=== PATIENT | male | born 1980 | race Caucasian/White ===

== ENCOUNTER 2020-07-10 14:03 | Emergency (ER) | payer OTHER, SELFPAY ==
[2020-07-10 14:40] VITALS: BP 124/91; PULSE 74; RESP 20; TEMP 37.1; O2SAT 98; BMI 25.4
--- NOTE | 2020-07-10 15:14 | HMH.EDUTC ---
[facility] [place] Disposition Clinical Impression: Inguinal muscle strain Qualifiers: Encounter type: subsequent encounter Qualified Code(s): S39.013D - Strain of muscle, fascia and tendon of pelvis, subsequent encounter Disposition: Home, Self-Care Condition on Discharge: Good Instructions: Muscle Strain, Groin Strain Additional Instructions: Call Dr Wyatt office [facility] Primary Care for appointment FOllow up if no improvement and for further treatment and evaluation Return if needed Straight to ER If any life threatening symptoms Referrals: Samson Myers MD [Primary Care Provider] - As needed Christiano Benavidez MD [Staff Physician] - As needed (Call office for appointment) Time of Disposition: 15:34 Medical Decision Making - Eze Inquiry Pt receiving controlled substance: No Eze was queried for this patient: No Vital Signs: 07/10/20 14:40 07/10/20 15:39 Temperature 98.7 F 98.7 F Temperature Source Oral Pulse Rate 74 Pulse Rate [Right Brachial] 74 Respiratory Rate 20 20 Blood Pressure 124/91 H Blood Pressure [Right Arm] 124/91 H Blood Pressure Mean [Right Arm] 102 Blood Pressure Source [Right Arm] Automatic Cuff Blood Pressure Position [Right Arm] Sitting 02 Sat by Pulse Oximetry 98 Oxygen Delivery Method Room Air Medical Decision Narrative: Spoke to the staff at [facility] Primary care and discussed patient and his circumstances Unsure of why Workers Comp sent him to the [facility] for referral as patient is unsure and they told him that his PCP is not covered under his workers comp They agreed to have patient call the office for appointment and would see him for further treatment and evaluation. [facility] [place] HPI - General Stated complaint: [id number] pain in groin area Time Seen by Provider: 07/10/20 15:14 Mode of Arrival: Ambulatory Source of Information: Patient Limitations: No Limitations Description of Symptoms (Recalled from Triage Doc. by RN): WC-PULLED MUSCLE ON RIGHT GROIN AREA ON 06/12/20 HEENT Symptoms (Recalled from RN notes): No Resp Symptoms (Recalled from RN notes): No Skin Symptoms (Recalled from RN notes): No MS Symptoms (Recalled from RN notes): Yes Functional Status (Recalled from RN notes): WNL - History of Present Illness Provider Complaint: Patient state that he was at work and slipped and pulled muscle in his groin area on 06/12/20 States that he was seening his PCP and they had him on light duty States that he has seen them several times but now they are not covered under his workers comp States that workers comp told him to come to the [facility] for a referral to [facility] Primary Care which is covered by his workers Comp. States that he is still having pain on and off and has been unable to see his PCP States that he is still on light duty but they told him he had to go see Dr Benavidez and he needs to get referral to get in to be seen. States that he has not reinjured himself just here today to get a referral and unsure why they sent him here - Related Data Home Medications Medication Instructions Recorded Confirmed No Known Home Medications 09/05/19 09/05/19 Allergies Allergy/AdvReac Type Severity Reaction Status Date / Time codeine [CODEINE] Allergy Unknown Verified 07/10/20 15:01 Sulfa (Sulfonamide Allergy Unknown Verified 07/10/20 15:01 Antibiotics) [SULFA (SULFONAMIDE ANTIBIOTICS)] - Worker's Comp Is this a Worker's Comp case?: No [facility] History - Hepatitis A Screen Drug use history?: No High risk sexual behaviors?: No History of sexually transmitted infection?: No Currently employed?: No Childcare worker?: No Do you have indoor plumbing?: Yes Do you have electricity?: Yes Attestation statement:: This patient has been screened for Hepatitis A risk factors. I have reviewed the patient's past medical history: Yes Other Surgeries: Yes: No Previous Surgery Amputation: No Fractures: No Comment: wisdon teeth 1995 - Social History Smoking Status: Former smoker Kathy
[2020-07-10 15:39] VITALS: BP 124/91; PULSE 74; RESP 20; TEMP 37.1; O2SAT 98
== END 2020-07-10 15:40 | disposition home or self-care (01) ==
PROVIDERS: Emergency Provider Nurse Practitioner; PCP Family Medicine
DX: S39.013A Strain of muscle, fascia and tendon of pelvis, initial encounter; W01.0XXA Fall on same level from slipping, tripping and stumbling without subsequent striking against object, initial encounter; Y92.69 Other specified industrial and construction area as the place of occurrence of the external cause; Y99.0 Civilian activity done for income or pay
CPT/HCPCS: 99201

== ENCOUNTER 2020-08-01 13:38 | Outpatient (CLI) | payer OTHER, SELFPAY ==
[2020-08-01 14:14] VITALS: BP 157/98; PULSE 97; RESP 18; TEMP 37.4; O2SAT 98
== END 2020-08-01 14:14 | disposition home or self-care (01) ==
LOC: INF 13:42
PROVIDERS: PCP Family Medicine; Visit Provider Surgery
DX: K40.90 Unilateral inguinal hernia, without obstruction or gangrene, not specified as recurrent (principal); S39.013D Strain of muscle, fascia and tendon of pelvis, subsequent encounter
CPT/HCPCS: 96372

== ENCOUNTER → 2020-09-12 15:24 | Outpatient (CLI) | payer OTHER, SELFPAY ==
--- NOTE | 2020-09-12 15:24 | CT_ITS ---
PROCEDURE: CT ABDOMEN PELVIS WO CON CLINICAL INDICATION: hernia Groin pain after fall on 06/12/2020 Pain increased last week COMPARISON: No exams were available for comparison TECHNIQUE: Axial images obtained with sagittal and coronal reformats. All CT scans at the facility use one or more dose reduction, viz: automated exposure control, ma/kV adjustment per patient size (including targeted exams where dose is matched to indication, i.e. head), or iterative reconstruction technique. FINDINGS: LOWER THORAX: Minimal atelectatic or fibrotic changes are present in the lingula. ABDOMEN & PELVIS: The liver, spleen, adrenal glands, and pancreas have an unremarkable appearance. There are few small peripancreatic and periportal lymph nodes. There nonobstructing left renal calculi at 2-3 mm. No ureteral calculi. No hydronephrosis. No evidence of appendicitis. There is colonic diverticulosis but no evidence of diverticulitis. Urinary bladder wall appears slightly thickened but could be due to the partially collapsed state. There are few retroperitoneal lymph nodes. No evidence of inguinal hernia. There are few small bilateral inguinal lymph nodes. IMPRESSION: 1. No acute finding. 2. Nonobstructing left nephrolithiasis. 3. No evidence inguinal hernia Dictated by: Harrison Fournier MD 09/13/2020 12:06 Harrison Fournier MD in [place] 09/13/2020 12:06
== END ==
PROVIDERS: PCP Family Medicine; Visit Provider Surgery
DX: S39.013A Strain of muscle, fascia and tendon of pelvis, initial encounter (principal)
CPT/HCPCS: 74176

== ENCOUNTER → 2020-10-04 14:14 | Outpatient (POV) | payer OTHER, SELFPAY ==
[2020-10-04 14:35] VITALS: BP 144/99; PULSE 81; RESP 20; O2SAT 96; BMI 28.1
--- NOTE | 2020-10-04 15:57 | HMH.PMCON ---
Assessment and Plan (1) Groin pain, chronic, right Status: Acute Category: Medical Code(s): R10.31 - Right lower quadrant pain; G89.29 - Other chronic pain - Assessment and plan all Dx Assessment and Plan for all problems:: We will start the patient on diclofenac 75 mg 1 p.o. twice daily. We will also order an MRI of his lumbar spine to help rule out any potential nerve impingement in the spine. We also discussed ilioinguinal hypoepigastric nerve block however the patient would like to hold off on this until he has his MRI. I will follow-up with him after this reassess his symptoms at that time he has been instructed to call the office if he has any issues prior to his next appointment. Dr. Winslow has reviewed this note and agrees with this plan of care. This note was dictated using voice recognition software and may contain errors or omissions HPI - Data of Consult Consult date: 10/04/20 Requesting Physician: Ayala Tran APRN Primary Care Provider: Samson Myers MD - Consult Narrative Reason for consult: Right groin and testicular pain History of present illness: Mr. Vargas is a 40 year old male who presents today for consultation regards his right groin and testicular pain. He has had this since an injury at work. Patient states that he currently has issues with turning and lifting at this time. He has been checked for inguinal hernias with no evidence of such. Patient states that it is very painful not necessarily burning but it can be very painful. Patient rates his pain today 7 out of 10. Patient had a CT scan which did not show any evidence of inguinal herniation patient and I had a discussion about anti-inflammatories, nerve entrapment, ilioinguinal neuralgia and potential back issues. CC: Ayala Tran APRN [facility] History I have reviewed the patient's past medical history: Yes Medical History: Denies:: Cancer, Diabetes Mellitus Type 1, Diabetes Mellitus Type 2, MRSA *Have you ever received a pneumonia vaccine?: No *Have you received a flu vaccine this season?: No Other Surgeries: Yes: No Previous Surgery, Other Amputation: No Fractures: No - *Social History Smoking Status: Former smoker Alcohol Intake: never Alcohol Intake Frequency:: holidays/special occasions only Substance Use Type: denies use *Occupational Status:: employed Housing: house Household Members: other *Travel in the last 8 weeks: None Family Hx:: No significant family history Review of Systems - Review of Systems ROS General: no recent weight change, no fever, no sleep disturbances Respiratory: no cough, no shortness of air, no recurring pulmonary infections Cardiovascular/Peripheral Vascular: No chest pain, No palpitations, no edema, no shortness of breath. Gastrointestinal: no new onset incontinence, normal bowel movements reported Genitourinary: no new onset incontinence Musculoskeletal: Right groin pain Psychiatric: normal mood/ affect Neurological: [denies new onset weakness in extremities], [denies new onset balance issues] Meds Home Medications Medication Instructions Recorded Confirmed Type Diclofenac Sodium [Diclofenac 75mg 75 mg PO BID #60 tab 10/04/20 Rx Tab] Allergies Allergy/AdvReac Type Severity Reaction Status Date / Time codeine [CODEINE] Allergy Unknown Verified 10/04/20 14:38 Sulfa (Sulfonamide Allergy Unknown Verified 10/04/20 14:38 Antibiotics) [SULFA (SULFONAMIDE ANTIBIOTICS)] Objective Vital signs: Pulse Resp BP Pulse Ox 81 20 144/99 H 96 10/04/20 14:35 10/04/20 14:35 10/04/20 14:35 10/04/20 14:35 Narrative: Physical Exam General: Alert and oriented x3, no acute distress, pleasant and cooperative, [on room air] Lungs: Resps E/U, Symmetrical chest expansion, Eyes: PERRL Musculoskeletal: Flexion and extension of lumbar spine somewhat guarded secondary to pain, deep tendon reflexes normal, strength in up
== END ==
PROVIDERS: PCP Family Medicine; Visit Provider Clinical Nurse Specialist Family Health
DX: R10.31 Right lower quadrant pain (principal); G89.29 Other chronic pain
CPT/HCPCS: 99202; G0463

== ENCOUNTER → 2020-10-22 13:46 | Outpatient (CLI) | payer OTHER, SELFPAY ==
--- NOTE | 2020-10-22 13:49 | MR_ITS ---
PROCEDURE: MR PELVIS WO CON CLINICAL INDICATION: RIGHT GROIN PAIN Rt groin pain [id number]. No trauma or injury. Pain worse when bending, twisting, or sitting for long periods. Prior CT abd/pelvis 09/12/20. COMPARISON: CT CT ABDOMEN PELVIS WO CON from 09/12/2020 TECHNIQUE: Routine multiplanar multi echo sequences are performed without gadolinium enhancement. FINDINGS: There is considerable motion artifact obscuring fine detail. Unfortunately this obscures the anterior abdominal wall. No obvious inguinal hernia or abnormal T2 signal of the abdominal wall or pubic region. No pelvic mass or abnormal fluid collection apparent.. The SI joints have an unremarkable appearance. IMPRESSION: Unremarkable MRI of the pelvis Dictated by: Harrison Fournier MD 10/24/2020 09:13 Harrison Fournier MD in [place] 10/24/2020 09:13
== END ==
PROVIDERS: PCP Family Medicine; Visit Provider Clinical Nurse Specialist Family Health
DX: R10.31 Right lower quadrant pain (principal)
CPT/HCPCS: 72195

== ENCOUNTER → 2020-11-01 14:18 | Outpatient (POV) | payer OTHER, SELFPAY ==
--- NOTE | 2020-11-01 15:12 | HMH.PAINSOAP ---
[facility] Pain Management SOAP Note Subjective:: Patient is a pleasant 40-year-old white female who presents today for follow-up after pelvic MRI pending and patient is currently a Workmen's Comp. case. Patient was requesting both lumbar and pelvis MRI but patient only received pelvis MRI patient's pelvis MRI is unremarkable. Patient has extreme right groin pain. Patient has now developed back pain as well as stating that it is worsening. He rates his pain a 5 out of 10. We we did discuss a ilioinguinal nerve block however he would like to rule out any lumbar issues prior to moving forward with this. ROS General: no recent weight change, no fever, no sleep disturbances Respiratory: no cough, no shortness of air, no recurring pulmonary infections Cardiovascular/Peripheral Vascular: No chest pain, No palpitations, no edema, no shortness of breath. Gastrointestinal: no new onset incontinence, normal bowel movements reported Genitourinary: no new onset incontinence Musculoskeletal: Back pain, inguinal pain Psychiatric: normal mood/ affect Neurological: [denies new onset weakness in extremities], [denies new onset balance issues] Objective:: Physical Exam General: Alert and oriented x3, no acute distress, pleasant and cooperative, [on room air] Lungs: Resps E/U, Symmetrical chest expansion, Eyes: PERRL Musculoskeletal: Flexion and extension of lumbar spine somewhat guarded secondary to pain, deep tendon reflexes normal, strength in upper and lower extremities [5/5], antalgic gait noted Neurological: speech clear, market researcher equal, no gross sensory deficits Assessment:: Right inguinal pain Plan:: We will discuss further with his employment case manager if he can move forward with a lumbar MRI. He has been instructed to call the office if he has any issues prior to his next appointment. Dr. Winslow has reviewed this note and agrees with this plan of care. This note was dictated using voice recognition software and may contain errors or omissions [facility] History I have reviewed the patient's past medical history: Yes Medical History: Denies:: Cancer, Diabetes Mellitus Type 1, Diabetes Mellitus Type 2, MRSA *Have you ever received a pneumonia vaccine?: No *Have you received a flu vaccine this season?: No Other Surgeries: Yes: No Previous Surgery, Other Amputation: No Fractures: No - *Social History Smoking Status: Former smoker Alcohol Intake: never Alcohol Intake Frequency:: holidays/special occasions only Substance Use Type: denies use *Occupational Status:: employed Housing: house Household Members: other *Travel in the last 8 weeks: None Family Hx:: No significant family history
[2020-11-01 16:29] VITALS: BP 139/72; PULSE 68; RESP 18; O2SAT 98; BMI 26.6
== END ==
PROVIDERS: Visit Provider Clinical Nurse Specialist Family Health
DX: R10.2 Pelvic and perineal pain (principal)
CPT/HCPCS: 99212; G0463

== ENCOUNTER → 2020-12-13 14:37 | Outpatient (POV) | payer OTHER, SELFPAY ==
[2020-12-13 14:47] VITALS: BP 146/90; PULSE 103; RESP 18; O2SAT 98; BMI 27.3
--- NOTE | 2020-12-13 15:04 | P.CONS_ITS ---
[facility] Pain Management SOAP Note Subjective:: Patient is a 40-year-old white male who presents today for follow-up after pelvic MRI. Patient was scheduled for a lumbar MRI however, was denied by his insurance. This is a Workmen's Comp. case. Patient says that he did fall and began to have severe right groin pain. He has been evaluated by 5 different physicians and says that no one is able to determine the cause of pain. He is now having severe right low back pain with radiation into his right hip and groin. The pain is worse when he is standing and walking. He describes the pain is sharp in nature. He has no pain on the left side. He has tried diclofenac as well as muscle relaxers with no relief. Rates his pain a 6 out of 10. Review of Systems General: No recent weight changes, no fever, no sleep disturbances Respiratory: No cough, no shortness of air, no recurring pulmonary infections Cardiovascular/peripheral vascular: No chest pain, no palpitations, no edema, no shortness of breath Gastrointestinal: No new onset incontinence, normal bowel movements reported Genitourinary: No new onset incontinence Musculoskeletal: Right low back pain with radiation into right hip and groin Psychiatric: Normal mood/affect Neurological: [Denies weakness in extremities], [denies balance issues] Objective:: Physical exam General: Alert and oriented x3, no acute distress, pleasant and cooperative, [on room air] Lungs: Respirations even and unlabored, symmetrical chest expansion Eyes: PERRL Musculoskeletal: Flexion and extension of lumbar spine somewhat guarded secondary to pain, deep tendon reflexes normal, strength in upper and lower extremities [5/5], [abnormal gait noted], positive Tona's test, positive compression test, positive distraction test Neurological: Speech clear, fiscal clerk equal, no gross sensory deficit Assessment:: Sacroiliitis, right hip pain, right groin pain Plan:: We will schedule the patient for a right SI joint injection. He is very tender to palpation on his right hip. He has a positive Tona's, compression, and distraction test. He and I did discuss physical therapy. We will send the patient to physical therapy to begin treatment for low back and right hip and groin pain. He will continue with home stretching and his diclofenac. We will also order him Skelaxin 800 mg 1 tablet p.o. twice daily. We will see him back in the clinic after his right SI joint injection to reevaluate his symptoms. Risks and benefits of the procedure have been explained to the patient. Patient would like to proceed with the procedure. Dr. Winslow has reviewed this note and agrees with this plan of care. This note was dictated using voice recognition software and make contain errors or omissions. [facility] History I have reviewed the patient's past medical history: Yes Medical History: Denies:: Cancer, Diabetes Mellitus Type 1, Diabetes Mellitus Type 2, MRSA *Have you ever received a pneumonia vaccine?: No *Have you received a flu vaccine this season?: No Other Surgeries: Yes: No Previous Surgery, Other Amputation: No Fractures: No - *Social History Smoking Status: Former smoker Alcohol Intake: never Alcohol Intake Frequency:: holidays/special occasions only Substance Use Type: denies use *Occupational Status:: employed Housing: house Household Members: other *Travel in the last 8 weeks: None Family Hx:: No significant family history
== END ==
PROVIDERS: Visit Provider Clinical Nurse Specialist Family Health
DX: M46.1 Sacroiliitis, not elsewhere classified (principal); M25.551 Pain in right hip; R10.31 Right lower quadrant pain
CPT/HCPCS: 99212; G0463

== ENCOUNTER → 2021-01-07 11:08 | Outpatient (POV) | payer OTHER, SELFPAY ==
[2021-01-07 11:26] VITALS: RESP 18; O2SAT 98; BMI 27.3
--- NOTE | 2021-01-07 12:26 | HMH.PAINSOAP ---
[facility] Pain Management SOAP Note Subjective:: Patient is a 40-year-old white male who presents today for follow-up. He is being seen in our clinic due to a Workmen's Compensation case. Patient had a fall while at work and began to develop severe right low back pain with radiation into his right hip and groin. Patient's pain is worse when he stands and walks. The pain is sharp in nature. He does not have any pain on the left side. Patient did try diclofenac as well as Skelaxin and previous muscle relaxers with no significant relief. Patient's pain is a 4 out of 10 today. We did attempt to schedule the patient for a right SI joint injection and the patient was denied. We scheduled the patient for physical therapy, the patient was denied. And we scheduled the patient for an MRI which was also denied. Patient continues to have significant pain and continues to get denials for any type of conservative treatment due to the Workmen's Compensation claim. Patient did plan for physical therapy to see if this would give him relief, however, Workmen's Compensation refused to allow the patient do physical therapy. The patient's pain is affecting his quality of life and is causing him to have significant pain throughout the day and is affecting his emotional state. Unfortunately, his insurance continues to deny him any type of treatment options. This is very concerning, as the patient continues to have significant relief and we are unable to treat the patient appropriately. This is very concerning to the patient as well. Review of Systems General: No recent weight changes, no fever, no sleep disturbances Respiratory: No cough, no shortness of air, no recurring pulmonary infections Cardiovascular/peripheral vascular: No chest pain, no palpitations, no edema, no shortness of breath Gastrointestinal: No new onset incontinence, normal bowel movements reported Genitourinary: No new onset incontinence Musculoskeletal: Right low back pain, right groin pain, right hip pain that is worse with standing or walking, Psychiatric: Normal mood/affect Neurological: [Denies weakness in extremities], [denies balance issues] Objective:: Physical exam General: Alert and oriented x3, no acute distress, pleasant and cooperative, [on room air] Lungs: Respirations even and unlabored, symmetrical chest expansion Eyes: PERRL Musculoskeletal: Flexion and extension of [] lumbar spine somewhat guarded secondary to pain, deep tendon reflexes normal, strength in upper and lower extremities [5/5], [abnormal gait noted], positive Tona's test, positive compression test, positive distraction test Neurological: Speech clear, septic tank servicer equal, no gross sensory deficit Assessment:: Sacroiliitis, low back pain, lumbar radiculopathy, right hip pain, right groin pain Plan:: Patient I have discussed the plan of care and unfortunately we are limited with any type of treatment we can provide the patient due to the Workmen's Compensation claim. This is very concerning, as the patient would like to undergo conservative therapies with physical therapy being our first choice of treatment. He is taking diclofenac and anti-inflammatories. I will give the patient prednisone 20 mg 1 tablet p.o. twice daily for 5 days. I do think the patient would benefit from physical therapy, however, his employer is denying this. 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 The patient's pain is progressively worsening and it is affecting his quality of life. Patient does wish to continue to work, however, his employer is refusing any type of formal treatment options for the patient at this time. He does continue with home stretching as well as ice and heat therapies at home. We will, once again seek approval for physical therapy. This is a starting point for conservative therapies for the patient in the clinic. If he continues to
== END ==
PROVIDERS: Visit Provider Clinical Nurse Specialist Family Health
DX: M46.1 Sacroiliitis, not elsewhere classified (principal); M54.5 Low back pain; M54.16 Radiculopathy, lumbar region; M25.551 Pain in right hip; R10.31 Right lower quadrant pain
CPT/HCPCS: 99212; G0463

== ENCOUNTER → 2021-01-21 11:36 | Outpatient (POV) | payer OTHER, SELFPAY ==
[2021-01-21 11:55] VITALS: BP 153/105; PULSE 89; RESP 18; O2SAT 96; BMI 27.3
--- NOTE | 2021-01-21 12:15 | HMH.PAINSOAP ---
[facility] Pain Management SOAP Note Subjective:: Patient is a 40-year-old white male who presents today for follow-up. He is being seen in our clinic due to Workmen's Compensation case. He did have a fall while at work began to develop severe right low back pain with radiation into his right hip and groin. The pain is worse when he is standing or walking. He has been on light duty at his job, however, he has been doing repetitive movements of turning and twisting and extension at waist. He says this has worsened his pain. After many calls to his insurance company, he has now been approved for physical therapy. He says that his pain has worsened since starting therapy. He does report to be having worsening hip pain on the right side. We have attempted to schedule patient for an MRI as well as right SI injection, however, he has not been approved by the insurance. The patient says that physical therapy is planning for dry needling. He would like to see if this helps. If he does not get relief with dry needling, he says he will contact his insurance company once again to seek approval for imaging to determine pathology of pain. He does rate his pain a 6 out of 10 today. We did discuss trying Celebrex as well for pain relief. He understands he will need to stop all other anti-inflammatories with this medication. Review of Systems General: No recent weight changes, no fever, no sleep disturbances Respiratory: No cough, no shortness of air, no recurring pulmonary infections Cardiovascular/peripheral vascular: No chest pain, no palpitations, no edema, no shortness of breath Gastrointestinal: No new onset incontinence, normal bowel movements reported Genitourinary: No new onset incontinence Musculoskeletal: Low back pain with radiation into right hip and right groin Psychiatric: Normal mood/affect Neurological: [Denies weakness in extremities], [denies balance issues] Objective:: Physical exam General: Alert and oriented x3, no acute distress, pleasant and cooperative, [on room air] Lungs: Respirations even and unlabored, symmetrical chest expansion Eyes: PERRL Musculoskeletal: Flexion and extension of [] lumbar spine somewhat guarded secondary to pain, deep tendon reflexes normal, strength in upper and lower extremities [5/5], [abnormal gait noted] Neurological: Speech clear, beauty specialist equal, no gross sensory deficit Assessment:: Low back pain, right groin pain, right hip pain Plan:: We will order the patient Celebrex 200 mg p.o. daily. He has been advised to stop taking other anti-inflammatories with the medication. He will continue with physical therapy and start dry needling. We will see him back after physical therapy for reevaluation of symptoms. If the patient does not get relief with physical therapy, we will seek approval for imaging. Patient has been instructed to contact the clinic with any concerns before the next appointment. Dr. Winslow has reviewed this note and agrees with this plan of care. This note was dictated using voice recognition software and make contain errors or omissions. [facility] History I have reviewed the patient's past medical history: Yes Medical History: Denies:: Cancer, Diabetes Mellitus Type 1, Diabetes Mellitus Type 2, MRSA *Have you ever received a pneumonia vaccine?: No *Have you received a flu vaccine this season?: No Other Surgeries: Yes: No Previous Surgery, Other Amputation: No Fractures: No - *Social History Smoking Status: Former smoker Alcohol Intake: never Alcohol Intake Frequency:: holidays/special occasions only Substance Use Type: denies use *Occupational Status:: employed Housing: house Household Members: other *Travel in the last 8 weeks: None Family Hx:: No significant family history
== END ==
PROVIDERS: Visit Provider Clinical Nurse Specialist Family Health
DX: M54.5 Low back pain (principal); R10.31 Right lower quadrant pain; M25.551 Pain in right hip
CPT/HCPCS: 99212; G0463

== ENCOUNTER 2021-01-22 13:30 | Outpatient (RCR) | payer OTHER, SELFPAY ==
--- NOTE | 2021-01-16 16:19 | HMH.PTOPEV ---
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 Pt reports slipping/twisting injury d/t slick door mat, injury to Right side of lumbar spine. Pt reports he did not fall, 'twisted and caught myself'. Pt reports right sided LBP with referred pain into Right hip/glut/groin. Chief Complaint Pain,Stiff,Weakness Symptom Type Ache,Sharp,Dull Symptoms Relieved By Rest/Positioning,OTC Meds Symptoms Aggravated By Sitting,Physical Activity, Twisting,Lifting Prior Functional Limitations Housework,Sitting,Walking, Bending/Stooping Current Functional Limitations Housework,Sitting,Walking, Bending/Stooping Symptom Description Constant but Variable Level of pain today (0-10) 5 Pain scale - at its best (0-10) 4 Pain scale - at its worst (0-10) 8 Lumbopelvic Eval Posture Thoracic Spine Posture Standing Position Neutral Lumbar Spine Posture Standing Position Neutral Assistive device Assistive Devices None / NA Gait Observation General Gait Pattern Observation Antalgic Gait Palapation tenderness right lumbar spinal tenderness Yes paraspinal tenderness Yes: 3/4 buttock tenderness Yes: 3/4 tenderness over symphysis pubis 3/4 Lumbar/Sacral Palpation Findings Tenderness,Trigger Point, Muscle Guarding Lumbar/Sacral Palpation Overall Comment 3/4 Accessory Movement L-spine Vertebrae Accessory Movements Right P/A [place] that Elicit Symptoms L2 right L3 right L4 right L5 right Range of Motion Lumbar Spine Active Flexion Range of 0-40 Motion (degrees) Lumbar Spine Active Extension Range of 0-20 Motion (degrees) Left Lumbar Spine Lateral Flexion Active 0-25 Range of Motion (degrees) Right Lumbar Spine Lateral Flexion 0-30 Active Range of Motion (degrees) Lumbar Spine ROM Limitations Soft Tissue Tightness,Pain Manual Muscle Test Right Knee Extension Strength Grade 4 [place]
== END 2021-01-22 13:35 | disposition home or self-care (01) ==
LOC: PT 13:30
PROVIDERS: Visit Provider Clinical Nurse Specialist Family Health
DX: M54.5 Low back pain (principal); M25.552 Pain in left hip; M25.551 Pain in right hip; M79.605 Pain in left leg; M79.604 Pain in right leg
CPT/HCPCS: 20560; 97010; 97014; 97035; 97110; 97163; G0283

== ENCOUNTER → 2021-02-07 14:05 | Outpatient (POV) | payer OTHER, SELFPAY ==
[2021-02-07 14:37] VITALS: BP 134/90; PULSE 83; RESP 18; O2SAT 98; BMI 28.0
--- NOTE | 2021-02-07 16:10 | HMH.PAINSOAP ---
[facility] Pain Management SOAP Note Subjective:: Patient is a 40-year-old white male who presents today for follow-up. He is being treated on a Workmen's Compensation case he had a fall while at work and developed severe right low back pain with radiation into his right hip and groin. He has been undergoing physical therapy which has not improved his pain. His pain is worse when he is standing or walking. 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 Patient says his pain is continuing to worsen. After many calls to his insurance company he was finally approved for physical therapy. He has since been denied a right SI injection along with a right trochanteric bursa injection. He is having pain in his right low back area as well as into his right hip. When patient suffered from a fall, he did likely misaligned his SI joint causing him to have significant pain. This does cause inflammation which could worsen his pain. Anti-inflammatories will be beneficial for the pain in most instances, however, he has not gotten any significant relief. Physical therapy can give short-term relief, however, injective therapy is the treatment choice in sacroiliitis additions. He does continue with home stretching. He is also continue with anti-inflammatories. He rates his pain a 6 out of 10 today. Review of Systems General: No recent weight changes, no fever, no sleep disturbances Respiratory: No cough, no shortness of air, no recurring pulmonary infections Cardiovascular/peripheral vascular: No chest pain, no palpitations, no edema, no shortness of breath Gastrointestinal: No new onset incontinence, normal bowel movements reported Genitourinary: No new onset incontinence Musculoskeletal: Right low back pain, right hip pain Psychiatric: Normal mood/affect Neurological: [Denies weakness in extremities], [denies balance issues] Objective:: Physical exam General: Alert and oriented x3, no acute distress, pleasant and cooperative, [on room air] Lungs: Respirations even and unlabored, symmetrical chest expansion Eyes: PERRL Musculoskeletal: Flexion and extension of [] lumbar spine somewhat guarded secondary to pain, deep tendon reflexes normal, strength in upper and lower extremities [5/5], [abnormal gait noted], positive Tona's test, positive compression test, positive distraction test Neurological: Speech clear, piecer equal, no gross sensory deficit Assessment:: Sacroiliitis right, trochanteric bursitis right Plan:: Workmen's Compensation has requested a narrative as to why it is believed the patient needs an SI injection. The patient has tenderness over the right SI joint as well as the right trochanteric bursa. He is having worsening pain with movement. He says his pain is worse when he is standing and walking. The pain has not been relieved with anti-inflammatories or with physical therapy. He continues to have significant pain despite home stretching. A fall can cause the SI joint to become misaligned causing severe pain into the low back area. The pain can radiate into the trochanteric bursa causing inflammation and pain into the right hip as well. We will schedule patient for right SI joint injection and right trochanteric bursa injection. He has tried dry needling and has not gotten any relief. He has still taking Celebrex. We will see him back after his injections to reevaluate his symptoms. Sacroiliitis code is M46.1, trochanteric bursitis code M70.60 Risks and benefits of the procedure have been explained to the patient. Patient would like to proceed with the procedure. Possible side effects of corticosteroids have been discussed with the patient. Patient has been instructed to contact the clinic with any concerns before the next appointment. Dr. Winslow has reviewed this note and agrees with this plan of care. This note was dictated using voice gerry
== END ==
PROVIDERS: Visit Provider Clinical Nurse Specialist Family Health
DX: M46.1 Sacroiliitis, not elsewhere classified (principal); M70.61 Trochanteric bursitis, right hip
CPT/HCPCS: 99212; G0463

== ENCOUNTER → 2021-02-22 11:35 | Day surgery (SDC) | payer OTHER, SELFPAY ==
[2021-02-22 11:36] VITALS: BP 184/68; PULSE 68; RESP 20; TEMP 36.7; O2SAT 98; BMI 28.8
[2021-02-22 12:17] VITALS: BP 129/79; PULSE 83; RESP 18; O2SAT 99
[2021-02-22 12:19] VITALS: BP 132/96; PULSE 74; RESP 18; O2SAT 99
--- NOTE | 2021-02-22 12:32 | P.PCN_ITS ---
- Procedure Date: 02/22/21 Time: 12:32 Anesthesiologist:: Rosalie Sierra MD Complications:: None Pre-procedure Diagnosis:: Right-sided sacroiliitis, right-sided trochanteric bursitis, right-sided chronic hip pain Post-procedure Diagnosis:: Same Indications for Procedure:: Patient is a very pleasant 40-year-old white male who presents today with chronic right-sided hip pain related to the above diagnosis. He has trialed and failed conservative treatment including oral pain medication and home stretching program for greater than 6 weeks. The plan for today is for the patient to unde rgo a right-sided SI joint injection and a right-sided trochanteric bursa injection under fluoroscopy #1. Procedure Details:: Informed consent was obtained and the risks and benefits of the procedure was going to the patient. Patient was taken to the procedure room. Patient was placed prone on the procedure table. The right hip was prepped using ChloraPrep. The skin and subcutaneous tissues were anesthetized using lidocaine. I placed a 22-gauge spinal needle into the inferior aspect of the right SI joint. Needle placement was confirmed with dye. After this we injected 5 mL bupivacaine 0.25% and Depo-Medrol 40 mg into the right SI joint. The patient tolerated the procedure well with no complication. Next, the skin and subcutaneous tissues overlying the right trochanteric bursa were anesthetized using 2 ml of 1% lidocaine. I placed a 22-gauge spinal needle under fluoroscopic guidance and advanced until it contacted the right greater trochanter. Needle placement was confirmed with dye. After this we injected 5 mL bupivacaine 0.25% and Depo-Medrol 40 mg. Patient tolerated the procedure well with no complications. Plan and Disposition:: We will follow-up with this patient in 2 weeks. Will reevaluate pain symptoms at that time.
[2021-02-22 12:35] VITALS: BP 179/64; PULSE 72; RESP 18; O2SAT 98
== END ==
PROVIDERS: PCP Family Medicine; Visit Provider Anesthesiology Pain Medicine
DX: M46.1 Sacroiliitis, not elsewhere classified (principal); M70.61 Trochanteric bursitis, right hip; Z72.0 Tobacco use; G43.909 Migraine, unspecified, not intractable, without status migrainosus; Z88.2 Allergy status to sulfonamides; Z88.6 Allergy status to analgesic agent
CPT/HCPCS: 20610; 27096; 77002; G0260; J1030; Q9966

== ENCOUNTER → 2021-02-26 07:56 | Outpatient (CLI) | payer OTHER, SELFPAY ==
--- NOTE | 2021-02-26 08:00 | MR_ITS ---
PROCEDURE: MR LUMBAR SPINE WO CON CLINICAL INDICATION: BACK PAIN Low back pain and right hip and groin pain COMPARISON: CT CT ABDOMEN PELVIS WO CON from 09/12/2020 MR MR PELVIS WO CON from 10/22/2020 TECHNIQUE: Standard multiplanar multiecho sequences are performed without contrast. 3-D MIP and myelographic images are also rendered and reviewed FINDINGS: Normal alignment. The spinal cord ends at the T12-L1 level. No acute fracture L1-L2: Unremarkable. L2-L3: Unremarkable. L3-L4: Unremarkable. L4-5: There is mild degenerative disc disease with mild bulging disc slightly eccentric toward the left. There is a small left paracentral disc protrusion abutting the L5 nerve root causing left lateral recess narrowing. There is facet and ligamentum hypertrophy also contributing to the mild lateral recess narrowing and mild bilateral foraminal narrowing. There is borderline narrowing of the canal at this level at 12 mm L5-S1: Facet and ligamentum hypertrophy with mild bilateral foraminal narrowing left slightly greater than right. IMPRESSION: 1. Degenerative disc disease at L4-5 with facet hypertrophic change and with mild bulging disc and a small left paracentral disc protrusion abutting the left L5 nerve root with left lateral recess narrowing and mild bilateral foraminal narrowing with borderline canal stenosis. 2. Facet ligamentum hypertrophy at L5-S1 with mild bilateral foraminal narrowing left slightly greater than right. 3. No extruded herniated disc Dictated by: Harrison Fournier MD 02/27/2021 09:53 Harrison Fournier MD in [place] 02/27/2021 09:53
== END ==
PROVIDERS: PCP Family Medicine; Visit Provider Clinical Nurse Specialist Family Health
DX: M54.5 Low back pain (principal)
CPT/HCPCS: 72148; 76376

== ENCOUNTER → 2021-03-04 11:08 | Outpatient (POV) | payer OTHER, SELFPAY ==
[2021-03-04 11:42] VITALS: BP 146/90; PULSE 97; RESP 18; O2SAT 98; BMI 28.8
--- NOTE | 2021-03-04 12:01 | HMH.PAINSOAP ---
[facility] Pain Management SOAP Note Subjective:: Patient is a pleasant 40-year-old white male who presents today for follow-up. He has been treated for low back pain with radiation into his lower extremities. Patient did have an MRI that reports the patient to have a L4-L5 disc protrusion abutting the L5 nerve root causing left lateral recess narrowing. The patient does report to be having pain in the low back area with radiation into the right buttock, right hip, right groin and right leg. He has been getting SI injections and bursa injections with no significant long-term relief. He has tried physical therapy and failed along with ice and heat therapies and anti-inflammatories. Patient's pain is a 4 out of 10 today. He reports to be having difficulty performing daily tasks at his job due to significant pain. The pain appears to be worsening for the patient. Patient I did discuss his MRI today and we have recommended the patient undergo a lumbar epidural steroid injection at L4-L5.I have discussed this with the patient. He would like to try the injection to see if this does give him relief. He has been compliant with all treatments in the clinic, however, has not gotten any significant relief. If the patient does not get relief with the injection, we will refer the patient for neurosurgical evaluation. Review of Systems General: No recent weight changes, no fever, no sleep disturbances Respiratory: No cough, no shortness of air, no recurring pulmonary infections Cardiovascular/peripheral vascular: No chest pain, no palpitations, no edema, no shortness of breath Gastrointestinal: No new onset incontinence, normal bowel movements reported Genitourinary: No new onset incontinence Musculoskeletal: Low back pain with radiation into right buttock, right hip, right leg Psychiatric: [Normal mood/affect] Neurological: [Denies weakness in extremities], [denies balance issues] Objective:: Physical exam General: Alert and oriented x3, no acute distress, pleasant and cooperative, [on room air] Lungs: Respirations even and unlabored, symmetrical chest expansion Eyes: PERRL Musculoskeletal: Flexion and extension of [] lumbar [spine] somewhat guarded secondary to pain, strength in upper and lower extremities [5/5], [antalgic gait noted] Neurological: Speech clear, [cook fry equal], no gross sensory deficit Assessment:: Degenerative disc disease lumbar spine with lumbar radiculopathy symptoms Plan:: We will schedule the patient for lumbar epidural steroid injection at L4-L5 area. He has not on any anticoagulation therapy. We will see him back in the clinic after his injection for reevaluation of symptoms. Patient has been instructed to contact the clinic with any concerns before the next appointment. Risks and benefits of the procedure have been explained to the patient. Patient would like to proceed with the procedure. Possible side effects of corticosteroids have been discussed with the patient. Dr. Winslow has reviewed this note and agrees with this plan of care. This note was dictated using voice recognition software and make contain errors or omissions. [facility] History I have reviewed the patient's past medical history: Yes Medical History: Denies:: Cancer, Diabetes Mellitus Type 1, Diabetes Mellitus Type 2, MRSA, Seizures *Have you ever received a pneumonia vaccine?: No *Have you received a flu vaccine this season?: No Other Surgeries: Yes: No Previous Surgery, Other Amputation: No Fractures: No - *Social History Smoking Status: Former smoker Alcohol Intake: never Alcohol Intake Frequency:: holidays/special occasions only Substance Use Type: denies use *Occupational Status:: employed Housing: house Household Members: other *Travel in the last 8 weeks: None Family Hx:: No significant family history
== END ==
PROVIDERS: Visit Provider Clinical Nurse Specialist Family Health
DX: M51.16 Intervertebral disc disorders with radiculopathy, lumbar region (principal)
CPT/HCPCS: 99212; G0463

== ENCOUNTER 2021-03-15 11:43 | Day surgery (SDC) | payer OTHER, SELFPAY ==
[2021-03-15 11:46] VITALS: BP 137/97; PULSE 104; RESP 18; TEMP 37; O2SAT 97; BMI 28.4
[2021-03-15 12:36] VITALS: BP 122/79; PULSE 98; RESP 18; O2SAT 97
[2021-03-15 12:37] VITALS: BP 122/79; PULSE 101; RESP 18; O2SAT 98
[2021-03-15 13:40] VITALS: BP 126/90; PULSE 105; RESP 20; O2SAT 97
--- NOTE | 2021-03-15 13:42 | HMH.PMPROC ---
- Procedure Date: 03/15/21 Time: 13:42 Anesthesiologist:: Rosalie Sierra MD Complications:: None Pre-procedure Diagnosis:: Degenerative disc disease of the lumbar spine, lumbar radiculopathy Post-procedure Diagnosis:: Same Indications for Procedure:: Patient is a very pleasant 40-year-old white male who presents today with chronic low back pain radiating to his legs related to the above diagnosis. He has tried and failed conservative treatment including oral pain medication and home stretching program for greater than 6 weeks. 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 He has been on work duty restrictions because of his pain. We discussed with the patient that we will continue with these restrictions until the injection today this injection should help with his primary pain generator. The plan for today is for the patient to undergo a lumbar epidural steroid injection at L5-S1 #1 under fluoroscopy. Procedure Details:: Informed consent was obtained and the risk and benefits of the procedure was explained to the patient. The patient was taken to the procedure room. The patient was placed prone on the procedure table. The patient was prepped and draped in sterile fashion. C-arm fluoroscopy was used to view the lumbar spine. Skin and subcutaneous tissues were anesthetized using lidocaine. I placed an 18-gauge epidural needle and advanced into the L5-S1 interspace using fluoroscopic guidance and [id number] to air and saline. After confirmation of needle placement in the epidural space with dye I injected 1 mL of lidocaine 1.0% with Depo-Medrol 80 mg. Patient tolerated the procedure well with no complications. Plan and Disposition:: We will follow-up with this patient in 2 weeks. Will reevaluate pain symptoms at that time.
== END 2021-03-15 13:40 | disposition home or self-care (01) ==
LOC: SC.PAINP 11:44
PROVIDERS: PCP Family Medicine; Visit Provider Anesthesiology Pain Medicine
DX: M51.16 Intervertebral disc disorders with radiculopathy, lumbar region (principal); J45.909 Unspecified asthma, uncomplicated; Z88.6 Allergy status to analgesic agent; Z88.2 Allergy status to sulfonamides
CPT/HCPCS: 62323; J1040; Q9966

== ENCOUNTER → 2021-04-19 09:32 | Outpatient (POV) | payer OTHER, SELFPAY ==
[2021-04-19 09:49] VITALS: BP 151/99; PULSE 88; RESP 20; TEMP 37.2; O2SAT 99; BMI 28.8
--- NOTE | 2021-04-19 10:16 | HMH.PAINSOAP ---
[facility] Pain Management SOAP Note Subjective:: Patient is a pleasant 40-year-old white male who came to us with a work injury to his right groin. He does have degenerative disc disease with sciatica and bulging disc. He may have aggravated this at his injury which is contributing to his pain. He did have an epidural steroid injection in SI joint injection which did not give him much relief. His primary care is referring him to a neurosurgeon for evaluation. He continues to have back pain with some limitation of movement and rotation and some radiation to his right hip and groin. He is scheduled to see Dr. Sanchez for neurosurgical evaluation. We will follow-up with him after his neurosurgical evaluation. Objective:: Alert and oriented x3 no acute distress. Patient does have an antalgic gait. Motor strength of the lower extremities is 5/5. There is no gross sensory deficit. He does have some tenderness over the right SI joint. He does have some limitation to movement including rotation. Assessment:: Degenerative disc disease of lumbar spine with lumbar radiculopathy symptoms to the right groin and right hip. Sciatica. Right-sided sacroiliitis. Right groin pain. Plan:: Patient is being referred to Dr. Erik Sanchez for neurosurgical evaluation. We will follow-up with him after his referral and appointment with Dr. Sanchez. [facility] History Medical History: Denies:: Cancer, Diabetes Mellitus Type 1, Diabetes Mellitus Type 2, MRSA, Seizures *Have you ever received a pneumonia vaccine?: No *Have you received a flu vaccine this season?: No Other Medical History: Denies: Blood Transfusion Reaction Other Surgeries: Yes: No Previous Surgery, Other Amputation: No Fractures: No - *Social History Smoking Status: Former smoker Alcohol Intake: never Alcohol Intake Frequency:: holidays/special occasions only Substance Use Type: denies use *Occupational Status:: employed Housing: house Household Members: spouse *Travel in the last 8 weeks: None Family Hx:: No significant family history
== END ==
PROVIDERS: PCP Family Medicine; Visit Provider Anesthesiology
DX: M51.16 Intervertebral disc disorders with radiculopathy, lumbar region (principal); M46.1 Sacroiliitis, not elsewhere classified; M54.31 Sciatica, right side
CPT/HCPCS: 99212; G0463

== ENCOUNTER 2022-03-25 09:44 | Emergency (ER) | payer BC, OTHER, SELFPAY ==
[2022-03-25 10:26] VITALS: BP 138/95; PULSE 78; RESP 20; TEMP 36.4; O2SAT 98; BMI 28.0
--- NOTE | 2022-03-25 10:48 | PC.NURSE ---
ED MD AT BEDSIDE TO EVALUATE PT
--- NOTE | 2022-03-25 11:10 | HMH.EDBACK ---
Discharge Plan Disposition Patient Disposition: Home, Self-Care Condition: Fair Prescriptions Prescriptions: New prednisone 10 mg tablet See Rx Instructions .ROUTE .COMPLEX Qty: 36 0RF Rx Instructions: prednisone 5 mg: take 8 tablets (40 mg) on Day 1; 7 tablets (35 mg) on Day 2; then decrease by 1 tablet every day until finished cyclobenzaprine 10 mg tablet 10 mg PO BID PRN (Reason: muscle spasm) Qty: 60 0RF Referrals Follow up/Referrals: Samson Myers MD [Primary Care Provider] - See instructions Activity Restrictions/Add. Instructions Additional Instructions/Restrictions: Please call your pain management physician to get a MRI of your lumbar spine as you may potentially need more injections. Clinical Impressions Clinical Impression: Strain of lumbar region, Lumbar radiculopathy Instructions Patient Instructions: DI for Low Back Pain Discharge ED Provider: Bhanu Magallon Back Pain HPI General Chief Complaint: Back Pain/Injury Stated Complaint: Back pain Time Seen by Provider: 03/25/22 10:45 Mode of Arrival: Ambulatory Limitations: No Limitations Description of Symptoms (Recalled from ER Triage Doc. by RN): PT WITH C/O LOW BACK PAIN THAT RADIATES DOWN LEFT LEG. RECEIVES INJECTIONS FOR BACK PAIN, THIS WEEKEND HE STRAINED HIS BACK AND PAIN HAS WORSENED. History of Present Illness HPI Narrative: Patient is a 41-year-old male who presents with concern for back pain. He has a past medical history of previous back injury that has been worked up for Worker's Comp. and has received injections in the past. He says that this weekend he was reaching over and now has been getting pain that radiates down his left leg. He says that he can still ambulate appropriately. Denies any bowel or bladder incontinence. Denies any saddle anesthesia. He says that his leg is just painful. He says that the pain is worse with rotation and movement. Relieved with rest. Related Data Previous Rx's Medication Instructions Recorded cyclobenzaprine 10 mg tablet 10 mg PO BID PRN muscle spasm #60 03/25/22 tabs prednisone 10 mg tablet See Rx Instructions PO .COMPLEX 03/25/22 #36 tabs Allergies Allergy/AdvReac Type Severity Reaction Status Date / Time codeine [CODEINE] Allergy Unknown Verified 04/19/21 09:50 Sulfa (Sulfonamide Allergy Unknown Verified 04/19/21 09:50 Antibiotics) [SULFA (SULFONAMIDE ANTIBIOTICS)] PFSH PFSH Social History Smoking Status: Never smoker alcohol intake: never substance use type: denies use current occupational status: employed Travel in the last 8 weeks: None household members: spouse housing: house current occupational exposures/hazards: No caffeine: No ROS Obtained: Yes All systems reviewed & no additional complaints except as documented A 14 point review system was performed and otherwise negative except per HPI Physical Exam General General appearance: alert and in no apparent distress Head Head exam: atraumatic, normocephalic and normal inspection Eye Eye exam: Present normal appearance, PERRL and EOMI ENT ENT exam: Present normal exam, normal oropharynx, mucous membranes moist, TM's normal bilaterally and normal external ear exam Neck Neck exam: Present normal inspection, full ROM and trachea midline; Absent meningismus or lymphadenopathy Chest Chest inspection: Present normal inspection and symmetric chest wall rise; Absent tenderness Respiratory Respiratory exam: Present normal lung sounds bilaterally; Absent respiratory distress Cardiovascular Cardiovascular exam: Present regular rate and normal rhythm; Absent JVD Abdominal Exam Abdominal exam: Present soft and normal bowel sounds; Absent distention, tenderness or guarding Extremities Exam Extremities exam: Present normal inspection, full ROM and normal capillary refill; Absent calf tenderness Back Exam Back exam: Present normal inspection, tenderness (Lumbar spine tendern
[2022-03-25 11:29] VITALS: BP 131/85; PULSE 73; RESP 20; TEMP 36.4; O2SAT 99
== END 2022-03-25 11:30 | disposition home or self-care (01) ==
LOC: UTC 10:05 → ER 10:10
PROVIDERS: Emergency Provider Student in an Organized Health Care Education/Training Program; PCP Family Medicine
DX: M54.16 Radiculopathy, lumbar region (principal); M62.838 Other muscle spasm; Z79.82 Long term (current) use of aspirin; Z88.2 Allergy status to sulfonamides; Z88.5 Allergy status to narcotic agent
CPT/HCPCS: 99282

== ENCOUNTER 2024-09-14 10:45 | Emergency (ER) | payer OTHER, SELFPAY ==
[2024-09-14 10:57] VITALS: BP 137/102; PULSE 86; RESP 16; TEMP 36.8; O2SAT 97; BMI 28.0
--- NOTE | 2024-09-14 11:19 | PC.NURSE ---
ROUNDED ON THE PT. THE PT VOICES THAT HE DOES NOT NEED ANYTHING AT THIS TIME. CALL LIGHT IS WITHIN REACH OF THE PT.
--- NOTE | 2024-09-14 11:24 | XR_ITS ---
FINAL REPORT CLINICAL HISTORY: crushed R little finger FINDINGS: Three views show no evidence of an acute, displaced fracture dislocation of the visualized bony architecture. There is mild degenerative change at the DIP joint of the fifth finger. IMPRESSION: Mild degenerative change without acute bony abnormality. Reviewed, Interpreted and Dictated by Emma Ross MD Transcribed by Kamini Garner Authenticated and [facility]
[2024-09-14] MEDS: TET/DIPHTH/PERT-ADULT 0.5ML SYRINGE 0.5 ML IM (11:43)
--- NOTE | 2024-09-14 11:49 | HMH.EDGENADL ---
Discharge Plan Disposition Patient Disposition: Home, Self-Care Prescriptions Prescriptions: New cephalexin 500 mg capsule 1,000 mg PO BID 5 Days Qty: 20 0RF Referrals Follow up/Referrals: Samson Myers MD [Primary Care Provider] - See instructions Activity Restrictions/Add. Instructions Additional Instructions/Restrictions: Call your family doctor to establish care for this visit to the emergency department and schedule follow-up within 48 hours to ensure improvement. If you have any worsening of your condition or any other concerning signs or symptoms, return to the emergency department or your primary care doctor for further evaluation. Antibiotic twice daily for 5 days. Clinical Impressions Clinical Impression: Crushing injury of right little finger Instructions Patient Instructions: DI for Laceration Repair Print Language Print Language: Maori Discharge ED Provider: Grabiel Elizabeth General Adult HPI General Chief complaint: Wound/Laceration Stated complaint: AO 09/14 0830 cut off part of r pinkey finger Time Seen by Provider: 09/14/24 10:53 Mode of Arrival: Ambulatory Source of Information: Patient Limitations: No Limitations Description of Symptoms (Recalled from ER Triage Doc. by RN): Patient reports that he got his finger pinched in a piece of equipment. Avulsion of tissue to right 5th finger. Bleeding is controlled with bandage placed prior to arrival. History of Present Illness HPI narrative: Please note that above description of symptoms, in this electronic medical record under categorization of recalled from ER triage doctor by RN are reflective of an initial nursing assessment, however, is not reflective of my full history and physical exam that was personally taken and clarified. Consequentially, this preceding description of symptoms, which may include the patient's categorized chief complaint in the EMR, do not reflect my personal clinical impression, and the ultimate description of history of present illness and patient stated complaints should be deferred to this section of the note. Unless stated otherwise or congruent with this section of the note, additional signs, symptoms, or incongruence should be interpreted as inaccurate with my clinical impression. Related Data Previous Rx's ?Medication ?Instructions ?Recorded cephalexin 500 mg capsule 1,000 mg (2 x 500 mg) PO BID 5 09/14/24 days #20 caps Allergies Allergy/AdvReac Type Severity Reaction Status Date / Time codeine (CODEINE) Allergy Unknown Verified 04/19/21 09:50 Sulfa (Sulfonamide Allergy Unknown Verified 04/19/21 09:50 Antibiotics) (SULFA (SULFONAMIDE ANTIBIOTICS)) PFSH PFSH Disclaimer: The information contained in this section may have been updated after the patient was seen, as this information can be updated by other users. Social History Smoking Status: Former smoker alcohol intake: never substance use type: denies use current occupational status: employed Travel in the last 8 weeks: None household members: spouse housing: house current occupational exposures/hazards: No caffeine: No Have you lived/traveled outside [place] in past 30 days?: No Contact w/someone who lives/traveled outside [place] past 30 days?: No Exposure to someone with infectious disease in past 14 days?: No Do you have a fever (greater than 100.4 F or 38 C)?: No Have you tested positive for COVID-19: No Exposed to someone with COVID-19 in past 14 days?: No Do you have a sore throat?: No Do you have a cough?: No Do you have any weakness?: No Do you have any diarrhea?: No Are you experiencing any unusual bleeding?: No Do you have any muscle aches/pain?: No Do you have any abdominal pain?: No Are you experiencing loss of taste or smell?: No Other Medical History Have you received the Flu Vaccine for this season: No Have you received the Pneumonia Vaccine: No ROS Obtained: Yes All systems reviewed & no additional complaints except as documented Physical Exam General General appearance: alert Head Head exam: atraumatic and normocephalic Eye Eye exam: Present normal appearance, PERRL and EOMI Neck Neck exam: Present normal inspection, full ROM and trachea midline Respiratory Respiratory exam: Absent respiratory distress, wheezes, stridor, accessory muscle use or prolonged expiratory phase Cardiovascular Cardiovascular exam: Present other (Pulses equal symmetric in upper and lower extremities) Abdominal Exam Abdominal exam: Present soft; Absent distention, tenderness or pulsatile mass Extremities Exam Extremities exam: Absent edema Neurological Exam Neurological exam: Present alert, oriented X3 and CN II-XII intact; Absent motor sensory deficit Skin Skin exam: Present warm and dry; Absent diaphoresis or erythema Medical Decision Making Medical Records Medical records reviewed: Yes I reviewed the patient's medical records. Screening: Per USPSTF and CDC recommendations, given the prevalence of disease in our region, it is our hospital?s policy to screen for HIV and viral Hepatitis for all patients aged 18 and over and those with ongoing risk factors. Eze Inquiry Pt receiving controlled substance: No Eze was queried for this patient: No Vital Signs: 09/14/24 10:57 Temperature 98.3 F Temperature Source Oral Pulse Rate [Left] 86 Respiratory Rate 16 Blood Pressure [Left Arm] 137/102 H Blood Pressure Mean [Left Arm] 113 Blood Pressure Source [Left Arm] Automatic Cuff 02 Sat by Pulse Oximetry 97 Oxygen Delivery Method Room Air Orders (Tests/Meds): ED MEDICATIONS Discontinued Medications Generic Name Dose Route Start Last Admin Trade Name Farhat PRN Reason Stop Dose Admin Lidocaine/Epinephrine 20 ml 09/14/24 11:24 09/14/24 12:20 Lidocaine 1% W/Epi 1:100,000 20ml Vial SQ 09/14/24 11:25 1 % ONCE ONE Administration Tetanus/Reduced Diphtheria/Acell Pertussis 0.5 ml 09/14/24 11:24 09/14/24 11:43 Tet/Diphth/Pert-Adult 0.5ml Syringe IM 09/14/24 11:25 0.5 ml .ONCE ONE Administration ORDERS Category Date Time Status XR finger RT min 2V Stat Exams 09/14/24 11:24 Completed Medical Decision Narrative: 44-year-old male presenting with injury to his right little finger. 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 He avulsed the soft tissues on the pad of his finger. Hemostatic with pressure. Came in for further evaluation. Does not remember his last tetanus shot. Pain is currently moderate in intensity and does not radiate. History obtained with patient. On physical examination, patient has soft tissue avulsion of most of his pad of his DIP on the right little finger. Hemostatic. Mild to moderate tenderness. No other injury noted and patient does have appropriate range of motion of that digit. Differential includes fracture, soft tissue injury, dislocation, among others. Patient was placed in saline and chlorhexidine rinse and digit was cleaned. Soaked in 1% lidocaine with epinephrine. Because there is a large soft tissue defect, nothing able to be closed. Was packed with wound dressings including Surgicel. Independent interpretation of x-rays demonstrates no fracture. Given Tdap. Because patient at baseline without signs or symptoms of clinical decompensation, deemed appropriate for discharge. Results were relayed to patient who voiced understanding and were agreeable to outpatient management and follow up. I discussed my clinical impression with patient and answered all questions. At this time, the evidence for any other entities in the differential is insufficient to warrant any further testing or ED observation. This was explained as well. Advisory was given that persistent or worsening symptoms require further evaluation. I confirmed the understanding of this discussion. Given first dose of Keflex here, right sent to pharmacy out of abundance of caution. [employer] disclaimer Much of this encounter note is an electronic amusement park worker spoken language to printed text. Electronic amusement park worker of the spoken language may permit errors. Although I have reviewed the note, some errors may still exist. Critical Care Critical Care Time Critical Care Time: No
--- NOTE | 2024-09-14 11:56 | PC.NURSE ---
1056- Patient ambulatory to room 6. Bandage to right 5th finger present, bleeding is controlled. 1115- Dr. Elizabeth at bedside for evaluation. Wound soaked in chlorhexidine/saline solution. Patient expresses no needs at this time. A & O x 4. 1142- Radiology at bedside for XR. 1150- Tetanus administered per order.
[2024-09-14] MEDS: LIDOCAINE 1% W/EPI 1:100,000 20ML VIAL 20 ML SQ (12:20)
[2024-09-14] MEDS: cephALEXin 500MG CAPSULE 1000 MG PO (13:05)
[2024-09-14 13:16] VITALS: BP 154/110; PULSE 75; RESP 16; TEMP 36.7
--- NOTE | 2024-09-14 13:18 | PC.NURSE ---
1220- Injury soaked in lidocaine. Patient expresses no other needs at this time. A & O x 4. No distress noted. 1310- Splint applied to right fifth digit, patient discharged, ambulatory to pharmacy.
== END 2024-09-14 13:17 | disposition home or self-care (01) ==
PROVIDERS: Emergency Provider Emergency Medicine; PCP Family Medicine
DX: S67.196A Crushing injury of right little finger, initial encounter (principal); W23.0XXA Caught, crushed, jammed, or pinched between moving objects, initial encounter
CPT/HCPCS: 73140; 90471; 90715; 99283